=== PATIENT | female | born 1950 | race Two or more races ===

== ENCOUNTER 2020-03-02 03:38 | Emergency (ER) | payer OTHER ==
[~2020-03-02] VITALS: Ht 162.6 cm; Wt 81.6 kg
[2020-03-02 08:13] LABS: Basophils # (auto) 0 10 ^3/uL (0-0.2); Basophils % (auto) 0.5 % (0.0-2.0); Eosinophils # (auto) 0.1 10 ^3/uL (0-0.8); Eosinophils % (auto) 1.3 % (0.0-7.0); Hematocrit 37.3 % (36.0-46.0); Hemoglobin 12.6 g/dL (12.2-16.2); Lymphocytes # (auto) 1.6 10 ^3/uL (0.4-5.4); Lymphocytes % (auto) 31.2 % (10.0-50.0); Mean Corpuscular Hemoglobin 27.4 pg (28.0-32.0); Mean Corpuscular Hgb Conc. 33.7 g/dL (32.0-36.0); Mean Corpuscular Volume 81.2 fL (80.0-100.0); Monocytes # (auto) 0.3 10 ^3/uL (0-1.3); Monocytes % (auto) 6.8 % (0.0-12.0); Neutrophils # (auto) 3.1 10 ^3/uL (1.6-8.6); Neutrophils % (auto) 60.2 % (37.0-80.0); Platelet Count (auto) 196 10^3/uL (140-450); Red Cell Distribution Width 15.8 % (11.8-14.3); White Blood Cell 5.1 10^3/uL (4.4-10.8)
[2020-03-02 08:48] LABS: INR 1.05 (0.9-1.15); Partial Thromboplastin Time 44.4 sec (23.0-31.2)
[2020-03-02 09:16] LABS: Chloride 108 mmol/L (98-107); Potassium 4.2 mmol/L (3.5-5.1); Sodium 139 mmol/L (136-145)
[2020-03-02 09:20] LABS: Alanine Aminotransferase 18 U/L (13-56); Albumin 3.5 g/dL (3.4-5.0); Anion Gap 4 (5-15); Aspartate Aminotransferase 16 U/L (15-37); BUN/Creatinine Ratio 17.6; Blood Urea Nitrogen 23 mg/dL (7-18); Calcium 9.1 mg/dL (8.5-10.1); Carbon Dioxide 27 mmol/L (21-32); GFR African American 52 mL/min; GFR Non-African American 43 mL/min; Glucose 98 mg/dL (74-106)
[2020-03-02 09:25] LABS: Alkaline Phosphatase 110 U/L (45-117); Bilirubin, Total 0.3 mg/dL (0.2-1.0); Magnesium 2.2 mg/dL (1.6-2.6); Total Protein 7.4 g/dL (6.4-8.2)
[2020-03-02 09:56] LABS: Amylase 68 U/L (25-115); Lipase 222 U/L (73-393)
[2020-03-02 11:29] VITALS: BP 133/76
== END 2020-03-02 12:19 | disposition home or self-care (01) ==
LOC: EDUNIT# 03:38 → EDBD 03:38 → ER 03:38
DX: R07.89 Other chest pain (principal); K29.00 Acute gastritis without bleeding; E86.0 Dehydration; I12.9 Hypertensive chronic kidney disease with stage 1 through stage 4 chronic kidney disease, or unspecified chronic kidney disease; N18.9 Chronic kidney disease, unspecified
CPT/HCPCS: 36415; 71045; 76705; 80053; 82150; 83690; 83735; 83880; 84443; 84484; 85025; 85610; 85730; 93005